=== PATIENT | male | born 1975 | race Caucasian/White ===

== ENCOUNTER 2019-01-06 17:50 | Emergency (ER) | payer MEDICAID ==
[~2019-01-06] VITALS: Ht 177.8 cm; Wt 86.4 kg
[2019-01-06 18:00] VITALS: BP 138/83
== END 2019-01-06 20:09 | disposition left against medical advice (07) ==
LOC: ER 17:51
DX: M79.645 Pain in left finger(s) (principal); Z53.21 Procedure and treatment not carried out due to patient leaving prior to being seen by health care provider

== ENCOUNTER 2019-12-24 23:35 | Emergency (ER) | payer MEDICAID ==
[~2019-12-24] VITALS: Ht 177.8 cm; Wt 89.1 kg
[2019-12-24] MEDS ORDERED: NO HOME MEDS (23:50)
[2019-12-25] MEDS ORDERED: acetaminophen 325mg tablet PO ONE (01:15)
[2019-12-25] MEDS ORDERED: ibuprofen tablet 400 MG TABLET PO ONE (01:15)
[2019-12-25] MEDS ORDERED: METH-360 PO (01:54)
[2019-12-25] MEDS ORDERED: PRED20TA PO (01:54)
[2019-12-25 02:28] VITALS: BP 129/76
== END 2019-12-25 02:22 | disposition home or self-care (01) ==
LOC: ER 23:36
DX: S39.012A Strain of muscle, fascia and tendon of lower back, initial encounter (principal); N20.0 Calculus of kidney; M51.26 Other intervertebral disc displacement, lumbar region; W18.30XA Fall on same level, unspecified, initial encounter; Y93.89 Activity, other specified; Y92.89 Other specified places as the place of occurrence of the external cause; Y99.9 Unspecified external cause status
CPT/HCPCS: 72131; 99284

== ENCOUNTER 2020-12-25 04:06 | Emergency (ER) | payer MEDICAID ==
[~2020-12-25] VITALS: Ht 177.8 cm; Wt 90.9 kg
[~2020-12-25 04:06] MED LIST: METH-360 PO; NO HOME MEDS
[2020-12-25] MEDS ORDERED: penicillin V potassium 500mg tablet PO ONE ×2 (04:20→04:35)
[2020-12-25] MEDS ORDERED: PENI-88 PO (04:23)
[2020-12-25 04:37] VITALS: BP 144/74
== END 2020-12-25 04:39 | disposition home or self-care (01) ==
LOC: ER 04:07
DX: K08.89 Other specified disorders of teeth and supporting structures (principal); F17.200 Nicotine dependence, unspecified, uncomplicated; Z79.2 Long term (current) use of antibiotics; Z79.899 Other long term (current) drug therapy
CPT/HCPCS: 99283